=== PATIENT | female | born 1970 | race Caucasian/White ===

== ENCOUNTER → 2021-02-10 | Outpatient (CLI) | payer BC | LOC: KOH-I 13:00 | DX: E03.9 Hypothyroidism, unspecified (principal); E04.1 Nontoxic single thyroid nodule | CPT/HCPCS: 76536 ==

== ENCOUNTER → 2021-03-24 | Outpatient (CLI) | payer BC | LOC: HEART 5 09:49 | DX: R07.9 Chest pain, unspecified (principal) ==

== ENCOUNTER 2021-10-10 09:46 | Emergency (ER) | payer BC ==
[2021-10-10 10:46] LABS: RED BLOOD COUNT 4.46 M/UL (4.00-5.10); WHITE BLOOD COUNT 7.2 K/UL (4.5-11.0)
[2021-10-10 11:13] LABS: BUN/CREATININE RATIO 17 (0-10)
[2021-10-10] MEDS ORDERED: PERCOCET 5/325 T1 EA PO (13:27)
[2021-10-10] MEDS ORDERED: TORADOL 10 MG T10 MG PO (13:30)
== END 2021-10-10 14:04 | disposition home or self-care (01) ==
LOC: ER1 09:46
PROVIDERS: Family Medicine
DX: N83.201 Unspecified ovarian cyst, right side (principal)
CPT/HCPCS: 80053; 81001; 83690; 85025; 96372; 99284; J1885; Q9967